=== PATIENT | female | born 1945 | race Caucasian/White ===

== ENCOUNTER → 2018-11-07 | Outpatient (CLI) | payer MEDICARE ==
--- NOTE | 2018-11-07 09:19 | BD ---
EXAMINATION TYPE: Axial Bone Density DATE OF EXAM: 11/07/2018 COMPARISON: NONE CLINICAL HISTORY: Height: 60 Weight: 109.3 FRAX RISK QUESTIONS: Alcohol (3 or more units per day): no Family History (Parent hip fracture): yes- mother Glucocorticoids (More than 3mos): no (Ex: prednisone, prednisolone, methylprednisolone, dexamethasone, and hydrocortisone). History of Fracture in Adulthood: yes Secondary Osteoporosis: 1. Type 1 Diabetes: no 2. Hyperthyroidism: no 3. Menopause before 45: yes 4. Malnutrition: no 5. Chronic liver disease: no Rheumatoid Arthritis: no Current Tobacco Use: no RISK FACTORS HISTORY OF: Spine Fracture: c-spine When: 2007 Family History of Osteoporosis: yes Active: yes Diet low in dairy products/other sources of calcium: yes Postmenopausal woman: partial hysterectomy age 25 MEDICATIONS: simvastatin, amlodipine Thyroid Medications: synthroid How Lon years Additional History: EXAM MEASUREMENTS: Bone mineral densitometry was performed using the [employer] System. Bone mineral density as measured about the Lumbar spine is: ----- L1-L4(G/cm2): 1.112 T Score Values are as follows: ----- L2: -1.1 ----- L3: -0.9 ----- L4: 0.6 ----- L1-L4: -0.6 Bone mineral density has: increased 5.0 % since study of: 06.12.2007 Bone mineral density about the R hip (g/cm2): 0.769 Bone mineral density about the L hip (g/cm2): 0.720 T Score values are as follows: -----R Neck: -1.9 -----L Neck: -2.3 -----R Total: -2.2 -----L Total: -2.5 Bone mineral density has: decreased -8.9 % since study of: 06.12.2007 IMPRESSION: 1. Osteoporosis of the left hip with osteopenia of the right hip. NOTE: T-SCORE=SD OF THE YOUNG ADULT MEAN.
== END ==
LOC: RADBDWWP 08:32
PROVIDERS: ATTEND Internal Medicine
DX: M81.0 Age-related osteoporosis without current pathological fracture (principal); M85.851 Other specified disorders of bone density and structure, right thigh
CPT/HCPCS: 77080

== ENCOUNTER → 2019-10-30 | Outpatient (CLI) | payer MEDICARE ==
[2019-10-30 12:27] LABS: Appearance,Urine Clear (Clear); Bilirubin,Urine Negative (Negative); Blood,Urine Small (Negative); Color,Urine Yellow; Glucose,Urine (UA) Negative (Negative); Hyaline Casts,Urine 75 /lpf (0-2); Ketones,Urine Negative (Negative); Leukocyte Esterase,Urine Small (Negative); Mucus,Urine Many /hpf; Nitrite,Urine Negative (Negative); Protein,Urine Trace (Negative); RBC,Urine 6 /hpf (0-5); Specific Gravity,Urine 1.019 (1.001-1.035); Squamous Epithelial Cell,Urine 1 /hpf (0-4); Urobilinogen,Urine <2.0 mg/dL (<2.0); WBC,Urine 11 /hpf (0-5)
== END | disposition home or self-care (01) ==
LOC: LABWHC1 11:30
PROVIDERS: ATTEND Internal Medicine
DX: R30.0 Dysuria (principal)
CPT/HCPCS: 81001; 87086

== ENCOUNTER → 2020-03-07 | Outpatient (CLI) | payer MEDICARE ==
[~2020-03-07] MED LIST: REGADENOSON 0.4 MG/5 ML SYRINGE IV ONE
--- NOTE | 2020-03-07 11:41 | P.STRESS ---
- Stress Test Note Stress Test Results/Findings: Exam Performed: NM stress lexiscan cardiolite Exam Date: 03/07/20 Reason for Exam: CHEST PAIN Height: 5 ft Weight: 48 kg Protocol: LEXISCAN Stage: N/A Duration of Exercise: 6 MINUTES Resting Heart Rate: 57 Resting Blood Pressure: 166/76 Maximum Achieved Heart Rate: 87 Maximum Achieved Blood Pressure: 166/76 85% PMHR: 123 100% PMHR: 145 METS: N/A Technologist Comment: Stress Test Results/Findings: Baseline rhythm is sinus bradycardia with a heart rate of 57 with poor R-wave progression. Nonspecific T-wave inversions in aVL and V1 and V2. Patient received an injection of Lexiscan. EKG monitoring revealed no evidence of agnostic ischemic ST deviation. Cardiolite was injected per protocol. Conclusions 1. Nondiagnostic electrocardiographic stress testing 2. Nuclear images will be reported separately
--- NOTE | 2020-03-07 12:56 | NM ---
EXAMINATION TYPE: NM stress lexiscan cardiolite DATE OF EXAM: 03/07/2020 COMPARISON: NONE HISTORY: Chest pain TECHNIQUE: After the intravenous administration of 10.04 mCi Tc 99m Sestamibi - Cardiolite resting S PECT images acquired 45 minutes post injection. The patient received 0.4mg Lexiscan, 25.8 mCi Tc 99m Sestamibi - Stress images obtained [address] injection FINDINGS: Review of stress and rest SPECT images demonstrates no distinct perfusion abnormality. Gated analysi s shows normal wall motion with an estimated left ventricular ejection fraction of 58 %. Gut activity noted incidentally. IMPRESSION: No scintigraphic evidence for reversible ischemia.
== END | disposition home or self-care (01) ==
LOC: RADNMMAIN 08:14
PROVIDERS: ATTEND Internal Medicine
DX: R07.9 Chest pain, unspecified (principal)
CPT/HCPCS: 93017; 78452; A9500; J2785

== ENCOUNTER → 2020-04-18 | Outpatient (CLI) | payer MEDICARE ==
[2020-04-18 16:38] LABS: HCT 37.1 % (34.0-46.0); MCH 30.5 pg (25.0-35.0); MCHC 32.3 g/dL (31.0-37.0); MCV 94.4 fL (80.0-100.0); Platelet Count 155 k/uL (150-450); RBC 3.93 m/uL (3.80-5.40); RDW 12.7 % (11.5-15.5); WBC 5.4 k/uL (3.8-10.6)
[2020-04-19 03:44] LABS: African American GFR (CKD) 83.6 (60.0-200.0); Albumin 4.4 g/dL (3.80-4.90); Albumin/Globulin Ratio 2.2 (1.60-3.17); Anion Gap 11.1 mmol/L (4.00-12.00); BUN/Creat Ratio 18.75 Ratio (12.00-20.00); Calcium 9.2 mg/dL (8.7-10.3); Carbon Dioxide 25.9 mmol/L (21.6-31.8); Non-African American GFR(CKD) 72.1 (60.0-200.0); Potassium 4.4 mmol/L (3.5-5.5); Total Bilirubin 1.2 mg/dL (0.2-1.2); Total Protein 6.4 g/dL (6.2-8.2)
== END | disposition home or self-care (01) ==
LOC: LABWHC1 16:01
PROVIDERS: ATTEND Internal Medicine
DX: K86.2 Cyst of pancreas (principal)
CPT/HCPCS: 36415; 80053; 82150; 83690; 85027; 86301

== ENCOUNTER → 2020-04-18 | Outpatient (CLI) | payer MEDICARE ==
--- NOTE | 2020-04-19 18:52 | MR ---
EXAMINATION TYPE: MR abdomen wo/w con DATE OF EXAM: 04/18/2020 COMPARISON: [facility] MRI abdomen 04/16/2019 HISTORY: Cyst of pancreas. TECHNIQUE: Multiplanar, multisequence images of the abdomen were obtained without and with administra tion of 5 mL Gadavist IV contrast. FINDINGS: Lung bases: No pleural or pericardial effusion. Liver: Scattered tiny T2 hyperintense hepatic cysts. Biliary: Status post cholecystectomy. No biliary ductal dilatation. Pancreas: No main pancreatic ductal dilatation. Within the posteromedial pancreatic head there is a r edemonstrated 1.4 x 1.7 x 1.7 cm unilocular T2 hyperintense cystic lesion with no evidence of mural n odularity or enhancement (3 1:11, 601:19). Findings are unchanged versus 04/16/2019 MRI comparison. T here are a few additional T2 hyperintense cystic foci of the pancreatic body and tail, largest measur ing up to 4 mm (601:22). Some of these lesions are better appreciated on 04/16/2019 MRI comparison. N o new cystic or increased lesions. No solid mass, mural nodularity, or cystic enhancement. Spleen: Normal. Adrenals: Normal. Kidneys: No hydronephrosis bilaterally. T2 hyperintense simple right renal cyst redemonstrated. Bowel: No bowel obstruction. Lymph nodes: No lymphadenopathy. Peritoneum: No ascites. Vasculature: Infrarenal abdominal aortic ectasia measures up to 2.1 cm. Osseous structures: No marrow-replacing lesions seen. Redemonstrated vertebral body hemangioma of T10 on the left. IMPRESSION: Multiple redemonstrated unilocular cystic lesions of the pancreas, largest measuring 1.7 cm in the pa ncreatic head. No worrisome features. No new or changed pancreatic cystic lesions versus 04/16/2019 M [place] comparison. 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 Differential considerations includ e pancreatic pseudocyst if there is history of pancreatitis. Mucinous cystic neoplasm is unlikely giv en patient's age.
== END | disposition home or self-care (01) ==
LOC: RADMRIMAIN 14:48
PROVIDERS: ATTEND Internal Medicine
DX: K86.2 Cyst of pancreas (principal)
CPT/HCPCS: 74183

== ENCOUNTER → 2024-06-02 | Outpatient (CLI) | payer MEDICARE ==
--- NOTE | 2024-06-02 16:50 | US ---
EXAMINATION TYPE: US kidneys/renal and bladder DATE OF EXAM: 06/02/2024 COMPARISON: MR abdomen 04/18/2020 CLINICAL INDICATION: Female, 78 years old with history of N39.9 UTI; Frequent UTI's. TECHNIQUE: Grayscale imaging of the bilateral kidneys and urinary bladder: FINDINGS: EXAM MEASUREMENTS: Right Kidney: 10.1 x 4.7 x 4.6 cm Left Kidney: 11.5 x 4.3 x 6.0 cm Right Kidney: Mid anechoic lesion = 1.7 x 1.5 x 1.3 cm Left Kidney: Medial anechoic lesion at hilum = 2.1 x 1.8 cm Bladder: Distended, anechoic Bilateral Jets seen There is no evidence for hydronephrosis at this point in time. Corticomedullary differentiation is ma intained bilaterally. Bilateral simple renal cysts. No nephrolithiasis is seen. No solid masses are identified. The urinary bladder is anechoic. IMPRESSION: 1. No hydronephrosis or nephrolithiasis. 2. Bilateral simple renal cysts. [facility], , 06/02/2024 4:48 PM
== END | disposition home or self-care (01) ==
LOC: RADUSWWP 16:08
PROVIDERS: ATTEND Urology
DX: N39.9 Disorder of urinary system, unspecified (principal); N28.1 Cyst of kidney, acquired
CPT/HCPCS: 76770